=== PATIENT | female | born 1945 | race Hispanic/Latino ===

== ENCOUNTER 2017-01-16 12:31 | Outpatient (CLI) ==
[2017-01-20 22:36] LABS: ANA Titer 1:40 (Negative)
[2017-01-22 13:34] LABS: Vitamin D, 25-OH, Total 16 ng/mL (30-100)
== END 2017-01-16 12:32 | disposition home or self-care (01) ==
LOC: LAB 12:31
PROVIDERS: ATTEND Specialist
CPT/HCPCS: 36415; 82085; 82164; 82306; 82550; 83921; 85652; 86038; 86225; 86592; 86618